=== PATIENT | female | born 1990 | race Caucasian/White ===

== ENCOUNTER → 2016-05-07 | Outpatient (CLI) | payer OTHER ==
--- NOTE | 2016-05-07 17:08 | DI ---
History: Antepartum screening study. Procedure: Transabdominal imaging using a 4 MHz transducer. Prior study dated 02/13/16 available. Findings: There is a single living intrauterine in vertex presentation; adequate amniotic f luid identified. Placenta is posteriorly oriented without previa or abruption. Face shows no evidence of cleft palate. Cervical length 6.5 cm. heart rate is 152 beats per minute. Four-chamber views of the heart are slightly suboptimal due to lie. No gross abnormalities are identified. No intracranial abnormalities are seen. There i s no evidence of hydrocephalus. Bony calvarium is normal. No nuchal thickening identified. Dorsal spi ne intact. Liver unremarkable. Three-vessel cord with normal insertion present. No ascites seen. Bladder n ormal. Extremities unremarkable as depicted. age parameters including BPD, HC, AC, FL are in close agreement between 21 weeks 6 days and 22 weeks 4 days. Aggregate is 22 weeks 2 days. By dates, 21 weeks 3 days is recorded. Estimated weight is 479 g. Impression: Single living intrauterine in the 81st percentile regarding weight and dates. O verall cardiac appearance is unremarkable to the extent visualized. A repeat ultrasound may be consid ered in about 4 weeks. At that point, position most likely will have changed. Estimated gestational age is 22 weeks 2 days. EDC 09/14/16
== END ==
LOC: US 14:05
PROVIDERS: ATTEND Family Medicine
DX: Z36 Encounter for antenatal screening of mother (principal); Z3A.21 21 weeks gestation of pregnancy
CPT/HCPCS: 76805

== ENCOUNTER → 2016-06-04 | Outpatient (CLI) | payer OTHER ==
--- NOTE | 2016-06-04 16:28 | DI ---
US OB , LIMITED,06/04/2016 2:22 PM: Clinical History: Additional heart views. Previous Exam: May 07, 2016 Findings: Multiple views of the heart are obtained demonstrating a normal four-chamber heart. The left and righ t ventricular outflow tracts are also normal. Detected Doppler heart tones measure 152 beats per minute. Visualized portions of the aorta are unremarkable. Impression: Normal four-chamber heart. This completes the anatomic survey.
== END ==
LOC: US 14:19
PROVIDERS: ATTEND Family Medicine
DX: Z36 Encounter for antenatal screening of mother (principal); Z3A.25 25 weeks gestation of pregnancy
CPT/HCPCS: 76815

== ENCOUNTER → 2016-06-28 | Outpatient (CLI) | payer OTHER ==
[2016-06-28 09:48] LABS: HEMATOCRIT 38.3 % (37.0-47.0); HEMOGLOBIN 13.1 g/dL (12.0-16.0); MEAN CORPUSCULAR HEMOGLOBIN 31.4 PG (27-31); MEAN CORPUSCULAR HGB CONC 34.2 g/dL (33-37); MEAN PLATELET VOLUME 9.6 FL (7.4-12.2); RDW COEFFICIENT OF VARIATION 14.2 % (11.5-14.5); RED BLOOD COUNT 4.17 10^6/uL (4.20-5.40); WHITE BLOOD COUNT 11.45 10^3/uL (4.8-10.8)
== END ==
LOC: LAB 08:27
PROVIDERS: ATTEND Family Medicine
DX: Z36 Encounter for antenatal screening of mother (principal); Z3A.28 28 weeks gestation of pregnancy
CPT/HCPCS: 36415; 82950; 84443; 85027

== ENCOUNTER → 2016-08-19 | Outpatient (CLI) | payer OTHER | LOC: MOB LAB 15:05 | PROVIDERS: ATTEND Family Medicine | DX: Z36 Encounter for antenatal screening of mother (principal); Z3A.36 36 weeks gestation of pregnancy | CPT/HCPCS: 87150 ==

== ENCOUNTER 2016-09-10 22:04 | Inpatient (IN) | payer OTHER ==
[2016-09-11] MEDS: Lactated Ringers 1,000 ML PRIMARY IV ONE ×2 (00:05→00:25)
[2016-09-11] MEDS ORDERED: NORMAL SALINE 10 ML SYRINGE FLUSH IVP PRN ×3 (00:12→02:56)
[2016-09-11] MEDS ORDERED: LIDOCAINE W/ SODIUM BICARB 0.5 ML SYR SUBD PRN (00:29)
[2016-09-11] MEDS ORDERED: CITRIC ACID/SODIUM CITRATE 30 ML CUP PO ONE (00:29)
[2016-09-11] MEDS ORDERED: CefOXitin Inj 2 GM in Sodium Chloride 0.9% 100 ML IV ONE (00:29)
[2016-09-11] MEDS ORDERED: Metoclopramide Inj 10 MG/2 ML VIAL IV ONE (00:29)
[2016-09-11] MEDS ORDERED: Lactated Ringers 1,000 ML PRIMARY IV ONE ×3 (00:29→02:11)
[2016-09-11] MEDS ORDERED: Famotidine Inj 20 MG in Normal Saline Flush 10 ML IVP ONE (00:29)
[2016-09-11] MEDS ORDERED: Lactated Ringers 1,000 ML PRIMARY IV SCH (00:30)
[2016-09-11] MEDS ORDERED: Oxytocin 20 Units + LR 1,000 ML IV SCH ×2 (00:30→03:45)
[2016-09-11 00:34] LABS: HEMATOCRIT 37.7 % (37.0-47.0); HEMOGLOBIN 13.1 g/dL (12.0-16.0); MEAN CORPUSCULAR HEMOGLOBIN 32.1 PG (27-31); MEAN CORPUSCULAR HGB CONC 34.7 g/dL (33-37); MEAN CORPUSCULAR VOLUME 92.4 FL (81-99); MEAN PLATELET VOLUME 10.3 FL (7.4-12.2); RED BLOOD COUNT 4.08 10^6/uL (4.20-5.40)
[2016-09-11] MEDS ORDERED: ePHEDrine Inj 50 MG/ML AMP ONE (00:59)
[2016-09-11] MEDS ORDERED: PHENYLEPHRINE 10,000 MCG/1 ML VIAL ONE (01:23)
[2016-09-11] MEDS ORDERED: Sodium Chloride 0.9% vial 10 ML ONE (01:23)
[2016-09-11] MEDS ORDERED: Oxytocin 20 Units + LR 1,000 ML IV ONE (01:28)
[2016-09-11] MEDS ORDERED: ONDANSETRON 4 MG/2 ML VIAL ONE (01:42)
[2016-09-11] MEDS ORDERED: ONDANSETRON 4 MG/2 ML VIAL IVP PRN ×2 (02:56→03:45)
[2016-09-11] MEDS ORDERED: HYDROmorphone 2 MG/1 ML IVP PRN (02:56)
[2016-09-11] MEDS ORDERED: fentaNYL Inj 100 MCG/2 ML VIAL IVP PRN (02:56)
--- NOTE | 2016-09-11 03:04 | OB.OP.NOTE ---
Operative Report Surgeon: Alex Bang MD Engraver [employer]: Dinesh Ortega MD Anesthesia Type: Regional Anesthesia Provider: Paramjit JoinerffCHRIS Surgery Date: 09/11/16 Preoperative Diagnosis: Previous section. Labor Postoperative Diagnosis: same, delivered Procedure: Repeat section Complications: none Estimated Blood Loss (mL): 900 Urine Output (mL): 400 Fluids: 2000 cc LR Indications: Pt has a history of 2 previous sections and is not a candidate for a trial of labor for vaginal after section. Findings: male infant in cephalic presentation; possibly very lightly meconium-stained amniotic fluid. Very thin lower uterine segment. Description of Procedure: The patient was taken to the operating room where spinal anesthesia was found to be adequate. She was then prepared and draped in the normal sterile fashion in the dorsal supine position with a leftward tilt. A Pfannenstiel skin incision was then made with the scalpel and carried through to the underlying layer of fascia with Bovie. The fascia was incised in the midline and the incision extended laterally with the Bovie. The superior aspect of the fascial incision was then grasped with Elda clamps, elevated and the underlying rectus muscles dissected off bluntly. Attention was then turned to the inferior aspect of this incision which, in a similar fashion, was grasped with Elda clamps and the rectus muscles dissected off both bluntly and with the Bovie. The rectus muscle was then in the midline, and the peritoneum identified, tented up, and entered in a blunt fashion. The peritoneal incision was then extended superiorly and inferiorly with good visualization of the bladder. The Rohit retractor was then inserted and the vesicouterine peritoneum was identified. A bladder flap was made with pickups and Metzenbaum scissors. The lower uterine segment was incised in a transverse fashion with the scalpel. The uterine incision was then extended laterally in a blunt fashion. The 's head was delivered atraumatically. The nose and mouth were suctioned with the bulb suction and the cord clamped and cut. The infant was handed off to the awaiting nurse. Cord gases and cord blood were sent for analysis. The placenta was then removed manually; the uterus exteriorized, and cleared of all clots and debris. There was brisk bleeding noted from the left side of the uterine incision. This was closed in the normal fashion with [address] Ortega. The remainder of the uterine incision was repaired with 0 Vicryl in a running, locked fashion. A second layer of the same suture was imbricated to obtain excellent hemostasis. There was brisk bleeding noted from several of the suture sites, and these were made hemostatic with figure of 8 sutures of 3-0 vicryl. The peritoneal cavity was then copiously irrigated with warm saline. The uterus was returned to the abdomen. The paracolic gutters were copiously irrigated with warm saline and a second look at the uterus incision continued to reveal excellent hemostasis. The peritoneum was closed with 3-0 Vicryl. The fascia was reapproximated with 0 PDS in a running fashion. The subcutaneous space was irrigated with copiously with warm saline and then closed first with 3-0 Vicryl rapide and then more superficially with Insorb absorbable sutures. The skin was reapproximated with Steri-Strips and a Silverlon dressing applied. Fundal massage was completed. The patient tolerated the procedure well. Sponge, lap, and needle counts were correct x2. Mefoxin was given preoperatively less than one hour prior to incision time. The patient was taken to the recovery room in stable condition.
[2016-09-11] MEDS ORDERED: Carboprost Inj 250 MCG/ML AMP IM PRN (03:45)
[2016-09-11] MEDS ORDERED: Famotidine Inj 20 MG in Normal Saline Flush 10 ML IVP PRN (03:45)
[2016-09-11] MEDS ORDERED: DIPH,PERTUSS,TET(ADACEL) VAC/PF 0.5 ML (Tdap) IM SCH (03:45)
[2016-09-11] MEDS ORDERED: CALCIUM CARBONATE 500 MG (TUMS) CHEWABLE TABLET PO PRN (03:45)
[2016-09-11] MEDS ORDERED: HYDROmorphone 2 MG/1 ML IV PRN (03:45)
[2016-09-11] MEDS ORDERED: diphenhydrAMINE 50 MG/1 ML VIAL IV PRN (03:45)
[2016-09-11] MEDS ORDERED: MISOPROSTOL 200 MCG TABLET RECTAL ONE (03:45)
[2016-09-11] MEDS ORDERED: METHYLERGONOVINE MALEATE 0.2 MG/1 ML VIAL IM PRN (03:45)
[2016-09-11] MEDS ORDERED: LANOLIN HPA 40 GM TUBE TOPICAL PRN (03:45)
[2016-09-11] MEDS ORDERED: Methylergonovine Tab 0.2 MG TAB PO PRN (03:45)
[2016-09-11] MEDS ORDERED: diphenhydrAMINE 25 MG CAPSULE PO PRN (03:45)
[2016-09-11] MEDS ORDERED: Nalbuphine Inj 20 MG/ML Ampule IVP PRN (03:45)
[2016-09-11] MEDS ORDERED: Naloxone Inj 0.01 MG, Sodium Chloride 0.9% vial 1 ML IVP PRN ×2 (03:45)
[2016-09-11] MEDS ORDERED: OXYTOCIN 10 UNIT/1 ML IM ONE (03:45)
[2016-09-11] MEDS: oxyCODONE-ACETAMINOPHEN 5-325 TAB PO PRN ×5 (04:03→21:45)
[2016-09-11] MEDS: KETOROLAC 30 MG/1 ML VIAL IVP PRN ×3 (04:04→16:18)
[2016-09-11] MEDS: D5-LR 1,000 ML PRIMARY IV SCH ×2 (07:27→13:14)
[2016-09-11] MEDS ORDERED: KETOROLAC 15 MG/1 ML VIAL IVP PRN (16:19)
[2016-09-11] MEDS: KETOROLAC 15 MG/1 ML VIAL IVP PRN (22:35)
[2016-09-11] MEDS: NORMAL SALINE 10 ML SYRINGE FLUSH IVP PRN (22:35)
[2016-09-12] MEDS: oxyCODONE-ACETAMINOPHEN 5-325 TAB PO PRN ×6 (01:49→20:57)
[2016-09-12] MEDS: KETOROLAC 15 MG/1 ML VIAL IVP PRN (04:53)
[2016-09-12] MEDS: NORMAL SALINE 10 ML SYRINGE FLUSH IVP PRN (04:54)
[2016-09-12 05:27] LABS: HEMATOCRIT 30.2 % (37.0-47.0); HEMOGLOBIN 10.3 g/dL (12.0-16.0); MEAN CORPUSCULAR HEMOGLOBIN 32.3 PG (27-31); MEAN CORPUSCULAR HGB CONC 34.1 g/dL (33-37); MEAN CORPUSCULAR VOLUME 94.7 FL (81-99); MEAN PLATELET VOLUME 9.9 FL (7.4-12.2); RED BLOOD COUNT 3.19 10^6/uL (4.20-5.40)
--- NOTE | 2016-09-12 09:15 | OB.PROGRES ---
Subjective Post Op Day: 1 Pain Management: PO [place] Catheter: No Flatus: Yes Diet: Regular Feeding Method: Exculsively Ambulating: Yes Concerns / Additional Information: C/o dizziness this morning with any type of movement. Did take a percocet this morning on an empty stomach. Feels better after she ate some breakfast. Objective - General General Appearance: POSITIVE: No Acute Distress, Cooperative - Cardiovacular Cardiovascular Exam: POSITIVE: RRR, No Murmur Edema: +1 Pedal Edema Extremities: Negative Vik's - Bilaterally - Respiratory Respiratory Exam: POSITIVE: Clear to Auscultation - Bilaterally, Breathing Non Labored - Abdomen Bowel Sounds: Present Abdominal Wound Assessment: Silverlone Dressing Assesstment / Plan (1) delivery delivered Current Visit: Yes Status: Acute Assessment / Plan: -routine cares. -rh positive. -rubella immune. -d/c home in 1-2 days.
[2016-09-12] MEDS: Prenatal Multivitamin Tab 1 TAB TAB PO SCH (09:21)
[2016-09-12] MEDS: Senna/Docusate Tab 1 TAB TAB PO SCH ×2 (09:21→20:58)
[2016-09-12] MEDS: IBUPROFEN 800 MG TABLET PO PRN ×2 (11:33→17:28)
[2016-09-13] MEDS: IBUPROFEN 800 MG TABLET PO PRN (00:58)
[2016-09-13] MEDS: oxyCODONE-ACETAMINOPHEN 5-325 TAB PO PRN (07:39)
[2016-09-13] MEDS: Prenatal Multivitamin Tab 1 TAB TAB PO SCH (08:28)
[2016-09-13] MEDS: Senna/Docusate Tab 1 TAB TAB PO SCH (08:28)
--- NOTE | 2016-09-13 08:33 | OB.PROGRES ---
Subjective Post Op Day: 2 Pain Management: PO [place] Catheter: No Flatus: Yes Diet: Regular Feeding Method: Exculsively Ambulating: Yes Objective - General General Appearance: POSITIVE: No Acute Distress, Cooperative - Cardiovacular Cardiovascular Exam: POSITIVE: RRR, No Murmur Edema: +1 Pedal Edema Extremities: Negative Vik's - Bilaterally - Respiratory Respiratory Exam: POSITIVE: Clear to Auscultation - Bilaterally, Breathing Non Labored Assesstment / Plan (1) delivery delivered Status: Acute Assessment / Plan: -routine cares. -breast feeding going well. -rh positive. -rubella immune. -d/c home later this morning.
[2016-09-13 08:48] VITALS: RESP 16; TEMP 98
--- NOTE | 2016-09-22 22:07 | DCSUMMARY ---
Hospitalization Summary Admit Date: 09/11/16 Discharge Date: 09/13/16 Primary Diagnosis:: Previous section x 2 Primary Surgery and Date: Repeat section, September 11 Delivery Type: Hospital Course: Pt had a normal course, for details of her repeat section, please see the operative report dictated elsewhere in the chart. / Postop Complications: Pt had a normal post-operative course. On the day of discharge, baby was nursing well, pt was independent in her activities of daily living, and her pain was well-controlled on oral medications. Gracey Complications: none Exam - Vitals Vital Signs: Vital Signs Temperature 98.0 F Temperature Source Oral Pulse Rate [Apical] 95 Pulse Rate [Pulse Oximeter] 91 Pulse Rate 91 Respiratory Rate 16 Blood Pressure [Left Arm] 106/63 Blood Pressure [Right Arm] 104/49 Blood Pressure 111/68 Pulse Ox 97 Oxygen Delivery Method Room Air Height 5 ft 6 in Weight 201 lb 12.8 oz - General General Appearance: POSITIVE: No Acute Distress, Cooperative - Head Head Exam: POSITIVE: Normal Inspection - ENT ENT Exam: POSITIVE: Normal Exam - Neck Neck Exam: POSITIVE: Normal Inspection - Respiratory Respiratory Exam: POSITIVE: Clear to Auscultation - Bilaterally, Breathing Non Labored - Cardiovascular Cardiovascular Exam: POSITIVE: RRR, No Murmur - GI/Abdominal GI/Abdominal Exam: POSITIVE: Normal Bowel Sounds, Non Tender, Non Distended, Soft - Extremities Extremities Exam: POSITIVE: Normal Inspection, Normal Capillary Refill - Neurological Neurological Exam: POSITIVE: Alert, Oriented x 3 - Psychiatric Psychiatric Exam: POSITIVE: Normal Affect, Normal Mood - Integumentary Integumentary Exam: POSITIVE: Normal Color, Warm, Dry Patient Problems - Patient Problem List (1) Status post repeat low transverse section Status: AcuteSupport Text: -routine cares. -breast feeding well. -rh positive. -rubella immune. -d/c home today, f/u next week.
== END 2016-09-13 10:18 | disposition home or self-care (01) | DRG 766 ==
LOC: OBOP 22:04 → OBIP 09-11 00:30 → OBOR 09-11 00:30 → OBIP 09-11 03:04
PROVIDERS: ADMIT Family Medicine; ATTEND Family Medicine
PROC: 10D00Z1 Extraction of Products of Conception, Low, Open Approach (ICD-10-PCS; principal; 2016-09-11 01:30)
DX: O34.211 Maternal care for low transverse scar from previous cesarean delivery (principal); N85.8 Other specified noninflammatory disorders of uterus; Z3A.39 39 weeks gestation of pregnancy; Z37.0 Single live birth
CPT/HCPCS: 36415; 59025; 81003; 85027; 86850; 86900; 86901; 94150; 94761; 99211; A4216; J1885; J2370; J2405; J2765; J7050; J7120

== ENCOUNTER 2016-09-17 09:54 | Emergency (ER) | payer OTHER ==
[2016-09-17] MEDS ORDERED: Sodium Chloride 0.9% 1,000 ML PRIMARY IV ONE (10:08)
[2016-09-17] MEDS ORDERED: KETOROLAC 15 MG/1 ML VIAL IVP ONE (10:08)
[2016-09-17] MEDS ORDERED: ONDANSETRON 4 MG/2 ML VIAL IVP ONE (10:08)
--- NOTE | 2016-09-17 10:15 | PDOC ---
Skin Rash/Insect/Abscess HPI - General Chief Complaint: Laceration / Wound Stated Complaint: Infected Incision Date Seen by Provider: 09/17/16 Time Seen by Provider: 10:10 Source: POSITIVE: Patient Exam Limitations: POSITIVE: No limitations Nurse's Notes Reviewed & Considered: Yes - History of Present Illness Initial Comments: Patient comes in today with a chief complaint of incisional abscess. Patient underwent a a week ago and over the last 24 hours has developed swelling and erythema, left lateral Pfannenstiel incision region. She denies any fever chills sweats, nausea vomiting or diarrhea, headache, cough, shortness of breath, chest pain. Have you received a tetanus shot in the past 10 years?: No Body Location Affected: REPORTS: Abdomen Timing: REPORTS: Gradual Duration: <1 week Severity: Moderate Quality: REPORTS: "Pain", Throbbing Identified Causes: REPORTS: Possibly Suspected Etiology: REPORTS: Other (Incisional abscess) Similar Symptoms Previously: No Recent Care Received: REPORTS: Surgery () Any Prior Injuries Related to Current Complaint?: No - Patient Home Medications Home Medications: Home Medications RX: Ibuprofen [Motrin] 800 mg PO TID PRN #30 tab 09/13/16 RX: oxyCODONE/APAP 5/325 Tab [Percocet 5/325 Tab] 1 - 2 tab PO Q4H PRN #25 tab 09/13/16 - Patient Allergies Allergies/Adverse Reactions: Allergies Allergy/AdvReac Type Severity Reaction Status Date / Time tetracycline [Tetracycline] AdvReac Intermediate VOMITING Verified 09/17/16 10: 31 Past Medical History - heen HEENT History: Other (please comment) Additional HEENT History: Currently taking Augmentin for "Sinus Infection" states also has "little cough" non productive Cardiovascular History: Denies History Respiratory History: Denies History Gastrointestinal History: Denies History Genitourinary History: Denies History Endocrine History: Denies History Musculoskeletal History: Denies History Neurological History: Denies History Blood Disorders: Denies History Psychiatric History: Depression Additional Psychiatric History: post History of Sexually Transmitted Diseases: No Cancer History: Denies History History of MDRO: No History of Other Communicable Diseases: No Alcohol Use: None Substance Use Type: None Previous Surgical History: Yes Type / Date of Surgery: 2014, C-2015 Anesthesia Reactions: No Malignant Hyperthermia: No Significant Family History: No pertinent family hx ROS - Limitations ROS Limitations: No Limitations Constitution: REPORTS: Denies Symptoms Cardiovascular: REPORTS: Denies Cardiac Symptoms Respiratory: REPORTS: Denies Resp Symptoms Neurological: REPORTS: Denies Neuro Symptoms Gastrointestinal: REPORTS: Abdominal Pain, Other (Swelling and erythema of left lateral Pfannenstiel incision) Endocrine: REPORTS: Denies Symptoms Musculoskeletal: REPORTS: Denies MS Symptoms Genitourinary: REPORTS: Denies Symptoms Eyes: REPORTS: Denies Symptoms ENT: REPORTS: Denies Symptoms Skin: REPORTS: Denies Skin Symptoms Lympathic: REPORTS: Denies Lympathic Symptoms Immunologic: POSITIVE: Denies Symptoms Psychiatric: POSITIVE: Denies Psych Symptoms Skin Rash/Insect/Abscess Exam - Skin Skin: REPORTS: Warm, Dry, Abscess, Tender Indurated Area, Pointing, Fluctuant, Wtih Erythema Skin Location: REPORTS: Abdomen Skin Symptoms: REPORTS: Warmth, Tenderness, Swelling, Induration - Extremities Extremity: Non-Tender: (All Extremities), Normal ROM: (All Extremities), Normal Inspection: (All Extremities), Pelvis Stable: (All Extremities) - HEENT HEENT: POSITIVE: Head Inspection Nml, Eyes Inspection Nml, Ears Inspection Nml, Nose Inspection Nml, PERRL, EOMI - Neck Neck: REPORTS: Trachea Midline, No Swelling - Respiratory Respiratory: REPORTS: No Respiratory Distress, Breath Sounds Normal - Cardiovascular Cardiovascular: REPORTS: Regular Rate and Rhythm, Heart Sounds Normal - Abdomen Abdomen: Soft: (All Quadrants), Normal Bowel Sounds: (All Quadrants), Tenderness Noted: (RLQ), (LLQ) (fluctuance left lateral Pfannenstiel incision) - Neurological / Psychological Neurological: REPORTS: Affect Apporpriate, Oriented X3, Motor Normal, Sensation Normal Procedures - Laceration/Wound Repair Did patient have a laceration repair: No - Incision and Drainage Site: left lateral Pfannenstiel incision. Local Anesthesia Used - Indicate Amt Used in Comment: Lidocaine 1%: Yes Blade Size: 11 I & D Procedure: gauze wick placed I&D Treatment: Purulent Drainage, Small Amount, Probed to Brk Loculations, Packed w/ Gauze, Obtained Cultures, Gram Stains Obtained Procedure Note:: After obtaining informed verbal consent patient had her abscess infiltrated 1% lidocaine an 11 blade was used to open the abscess. Purulent material was expressed. Gram stains and cultures were obtained. The abscess was evacuated, and a 1 inch iodoform gauze wick was placed. An ABG pad was placed over the top of this. No tape was utilized, instead use the patient's undergarments told bandage in place. Patient tolerated this well, she receives IV antibiotics , prescription for oral's. Skin Rash/Abscess Progress - Results Reviewed by me Xrays/CTs/US Reviewed by me: Yes Discussed with Radiologist: Yes Labs Normal Except for:: Abnormal Lab Results: Entire Visit 09/17/16 Range/Units 10:05 WBC 12.16 H (4.8-10.8) 10^3/uL RBC 3.57 L (4.20-5.40) 10^6/uL Hgb 11.3 L (12.0-16.0) g/dL Hct 33.3 L (37.0-47.0) % MCH 31.7 H (27-31) PG Neut % (Auto) 82.3 H (50-80) % Lymph % (Auto) 9.4 L (10-50) % Vermilion # (Auto) 0.87 H (0.3-0.8) 10*3/UL Albumin 3.2 L (3.5-4.8) g/dL Albumin/Globulin Ratio 1.00 L (1.3-2.0) mg/g Lab Results Reviewed: Yes - Patient's Progress Pain Medication Addressed: POSITIVE: Yes Re-Examine Time:: 11:40 Status: POSITIVE: Improved MDM / ED Course: Patient was examined, an IV started, blood drawn and sent to the lab for studies , radiographic examination was obtained. Findings: CBC shows white count elevated to 13. CT scan per my interpretation shows subcutaneous abscess left lower quadrant in the region of a Pfannenstiel incision. No acute intra-abdominal abnormality is appreciated. Assessment: Wound infection, abscess I&D. Plan: IV antibiotics, dressing changes for her wound with wick placement into abscess, follow-up with OB gynecology. - Consult Counseled: POSITIVE: Patient, Family, RE: Lab Results, RE: Radiology Results, RE : DX, RE: Need for F/U Patient Care Time - Estimated PCT Patient Care Time (In Minutes): 45 Vital Signs - Recent Vital Signs Vital Signs: Vital Signs (Last 8 hours) Temp Pulse Resp BP Pulse Ox 09/17/16 09:55 96.6 F L 100 15 110/43 99 - VS Reviewed Vital Signs Reviewed: Yes Discharge Clinical Impression: Incisional abscess Discharge Disposition: Discharged to Home Condition: Stable Patient Instructions Given at Discharge: Abscess (ED)
[2016-09-17 10:17] LABS: BASOPHILS # (AUTO) 0.03 10*3/UL; BASOPHILS % (AUTO) 0.2 % (0-1); EOSINOPHILS # (AUTO) 0.09 10*3/UL; EOSINOPHILS % (AUTO) 0.7 % (0-8); HEMATOCRIT 33.3 % (37.0-47.0); HEMOGLOBIN 11.3 g/dL (12.0-16.0); LYMPHOCYTES # (AUTO) 1.14 10*3/uL; MEAN CORPUSCULAR HEMOGLOBIN 31.7 PG (27-31); MEAN CORPUSCULAR HGB CONC 33.9 g/dL (33-37); MEAN CORPUSCULAR VOLUME 93.3 FL (81-99); MONOCYTES # (AUTO) 0.87 10*3/UL (0.3-0.8); MONOCYTES % (AUTO) 7.2 % (5-15); NEUTROPHILS % (AUTO) 82.3 % (50-80); RED BLOOD COUNT 3.57 10^6/uL (4.20-5.40)
[2016-09-17 10:18] LABS: PLATELET MORPHOLOGY COMMENT NORMAL MORPHOLOGY (NORM); RBC MORPHOLOGY COMMENT NORMAL MORPHOLOGY (NORM); WBC MORPHOLOGY COMMENT NORMAL MORPHOLOGY (NORM)
[2016-09-17 10:28] LABS: BLOOD UREA NITROGEN 10 mg/dL (7-22); BUN/CREATININE RATIO 14.28 (6-20); CALCIUM 8.7 mg/dL (8.7-10.7); EST GLOMERULAR FILTRATION > 60 (>60 ml/min/1.73m(2)); SERUM ALBUMIN 3.2 g/dL (3.5-4.8)
[2016-09-17 10:52] VITALS: RESP 15; TEMP 96.6
[2016-09-17] MEDS ORDERED: Lidocaine Inj 1% 20 ML ONE (11:30)
[2016-09-17] MEDS ORDERED: ceFAZolin Inj 3 GM in Sodium Chloride 0.9% 100 ML IV ONE (11:36)
[2016-09-17] MEDS ORDERED: Lidocaine 1% 10 MG/ML - 20 ML VIAL SUBCUT ONE (11:38)
--- NOTE | 2016-09-17 14:36 | DI ---
CT ABDOMEN SCAN WITH IV CONTRAST, 09/17/2016 10:08 AM : Clinical History: Incisional abscess. Abdominal pain. The patient had a approximately one w [place] earlier. Previous Exam: None at this facility. Scans are performed from the lower lung bases through the liver and kidneys with IV contrast. 75 ml o f Isovue 300 was injected IV. No oral or rectal contrast was ordered. The lung bases are clear. The liver is normal. The gallbladder is grossly normal. Both adrenal glands and the pancreas are normal. There is mild to moderate splenomegaly without evidence of varices. Bot h kidneys are normal in size, shape, position and contour. There is no hydronephrosis or hydroureter. No renal or ureteral calculi are present. There are no abnormal retrocrural or periaortic nodes. No ascites is present. READING: Mild to moderate splenomegaly. Scans of the upper abdomen are otherwise normal. CT PELVIS SCAN WITH IV CONTRAST, 09/17/2016 10:08 AM: Clinical History: See above. Previous Exam: None at this facility. Scans are performed from just superior to the umbilicus to the symphysis pubis with IV contrast. This is the same bolus of contrast used for the CT scans of the abdomen. Scans through the lower abdomen and pelvis show no masses or abnormal fluid collections. There is no intra-abdominal adenopathy. The appendix is not visualized with certainty but there is no inflammator y mass either in the cecal tip or in the right lower quadrant. The small bowel, terminal ileum, and i leocecal valve are normal. The colon is also normal. There is a small umbilical hernia through which only mesenteric fat has herniated. The uterus is enlarged consistent with the history of recent deliv charlie. Neither ovary is identified with certainty. There is inflammatory/infiltrative change corresponding to the transverse incision related to the C-s ection. There is more soft tissue prominence laterally on the left side than on the right at the inci ramon site. The subcutaneous fat deep to the incision and extending laterally into the flank region sh ows inflammatory/infiltrative change. The left rectus muscle deep to the incision is approximately tw ice as thick as the right side and this may indicate there is a postoperative hematoma or seroma in t he right rectus muscle. In view of the inflammatory/infiltrative changes in the incision particularly on the left side, a rectus sheath abscess cannot entirely be excluded. READIN. There is thickening of the left rectus muscle bundle just deep to the incision. The inc ision itself is thickened and prominent on the left side compared to the right. Inflammatory/infiltra tive changes are evident in the subcutaneous fat surrounding the incision site and extending into bot h flank regions. An incisional abscess on the left side is suspected with diffuse cellulitis. The thi ckening of the rectus muscle on the left side either represents a postoperative hematoma/seroma, but an abscess of this muscle bundle cannot entirely be excluded because of its proximity to the suspecte d incisional abscess. 2. The uterus is enlarged but expected for the recent status. No intra-abdominal fluid co llection is noted.
== END 2016-09-17 12:38 | disposition home or self-care (01) ==
LOC: ER 09:54
DX: L76.82 Other postprocedural complications of skin and subcutaneous tissue (principal); O86.0 Infection of obstetric surgical wound
CPT/HCPCS: 10060; 74177; 80053; 83735; 85025; 87070; 87075; 87077; 87185; 87186; 87205; 96365; 96375; 99282; J0690; J1885; J2001; J2405; J7030; J7050

== ENCOUNTER 2019-02-15 05:57 | Inpatient (IN) ==
[~2019-02-15 05:57] MED LIST: CITRIC ACID/SODIUM CITRATE 30 ML CUP PO ONE; CefOXitin Inj 2 GM in Sodium Chloride 0.9% 100 ML IV ONE; FAMOTIDINE 20 MG/2 ML VIAL IVP ONE; LIDOCAINE HCL 2 % 10 ML JELLY URO-JECT TOPICAL PRN; LIDOCAINE W/ SODIUM BICARB 0.5 ML SYR SUBD PRN; Lactated Ringers 1,000 ML PRIMARY IV ONE; Lactated Ringers 2,000 ML PRIMARY IV ONE; Metoclopramide Inj 10 MG/2 ML VIAL IV ONE
[2019-02-15] MEDS ORDERED: Lactated Ringers 1,000 ML PRIMARY IV SCH (06:00)
[2019-02-15] MEDS ORDERED: Oxytocin 20 Units + LR 20 UNIT/1,000 ML BAG IV SCH ×2 (06:00→10:00)
[2019-02-15 06:47] LABS: Hemoglobin [HGB] 13.1 g/dL (12.0-16.0); MEAN CORPUSCULAR HGB CONC 34.5 g/dL (33-37); MEAN CORPUSCULAR VOLUME 90.9 FL (81-99); RED BLOOD COUNT 4.18 10^6/uL (4.20-5.40)
[2019-02-15 06:48] LABS: MEAN PLATELET VOLUME 9.8 FL (7.4-12.2)
[2019-02-15] MEDS ORDERED: fentaNYL Inj 100 MCG/2 ML VIAL ONE (07:15)
[2019-02-15] MEDS ORDERED: OXYTOCIN 10 UNIT/1 ML ONE (07:57)
[2019-02-15] MEDS ORDERED: KETOROLAC 30 MG/1 ML VIAL ONE (08:17)
[2019-02-15] MEDS ORDERED: ONDANSETRON 4 MG/2 ML VIAL ONE (08:24)
[2019-02-15] MEDS ORDERED: Prochlorperazine Edisylate Inj 10mg/2ml vial IVP PRN (09:03)
[2019-02-15] MEDS ORDERED: HYDROmorphone 2 MG/1 ML IVP PRN (09:03)
[2019-02-15] MEDS ORDERED: LIDOCAINE W/ SODIUM BICARB 0.5 ML SYR SUBD PRN (09:03)
[2019-02-15] MEDS ORDERED: diphenhydrAMINE 50 MG/1 ML VIAL IV PRN (09:54)
[2019-02-15] MEDS ORDERED: ONDANSETRON 4 MG/2 ML VIAL IVP PRN (09:54)
[2019-02-15] MEDS ORDERED: diphenhydrAMINE 25 MG CAPSULE PO PRN (09:54)
[2019-02-15] MEDS ORDERED: DIPH,PERTUSS,TET(ADACEL) VAC/PF 0.5 ML (Tdap) IM ONE (09:54)
[2019-02-15] MEDS ORDERED: BUTORPHANOL TARTRATE 2 MG/1 ML VIAL IVP PRN (09:54)
[2019-02-15] MEDS ORDERED: Nalbuphine Inj 20 MG/ML Ampule IVP PRN (09:54)
[2019-02-15] MEDS ORDERED: Naloxone Inj 0.01 MG, Sodium Chloride 0.9% vial 1 ML IVP PRN ×2 (09:54)
[2019-02-15] MEDS ORDERED: LANOLIN HPA 40 GM TUBE TOPICAL PRN (09:54)
[2019-02-15] MEDS ORDERED: HYDROmorphone 2 MG/1 ML IV PRN (09:54)
[2019-02-15] MEDS ORDERED: FAMOTIDINE 20 MG/2 ML VIAL IVP PRN (09:54)
[2019-02-15] MEDS ORDERED: CALCIUM CARBONATE 500 MG (TUMS) CHEWABLE TABLET PO PRN (09:54)
[2019-02-15] MEDS: oxyCODONE-ACETAMINOPHEN 5-325 TAB PO PRN ×3 (11:43→20:25)
[2019-02-15] MEDS: KETOROLAC 15 MG/1 ML VIAL IVP SCH ×2 (14:11→20:25)
[2019-02-15] MEDS: D5-LR 1,000 ML PRIMARY IV SCH (18:19)
[2019-02-16] MEDS: oxyCODONE-ACETAMINOPHEN 5-325 TAB PO PRN ×4 (01:19→17:50)
[2019-02-16] MEDS: KETOROLAC 15 MG/1 ML VIAL IVP SCH ×2 (03:09→08:32)
[2019-02-16 05:55] LABS: Hematocrit [HCT] 32.4 % (37.0-47.0); Hemoglobin [HGB] 11.1 g/dL (12.0-16.0); MEAN CORPUSCULAR HGB CONC 34.3 g/dL (33-37); MEAN PLATELET VOLUME 9.9 FL (7.4-12.2); RED BLOOD COUNT 3.52 10^6/uL (4.20-5.40)
[2019-02-16] MEDS: Sertraline Tab 50 MG TAB PO SCH (08:32)
[2019-02-16] MEDS: Senna/Docusate Tab 1 TAB TAB PO SCH ×2 (08:32→21:43)
[2019-02-16] MEDS: Prenatal Multivitamin Tab 1 TAB TAB PO SCH (08:32)
[2019-02-16] MEDS: IBUPROFEN 800 MG TABLET PO SCH ×2 (14:49→23:26)
[2019-02-16] MEDS ORDERED: IBUPROFEN 800 MG TABLET PO SCH (15:46)
[2019-02-17] MEDS: Sertraline Tab 50 MG TAB PO SCH (08:26)
[2019-02-17] MEDS: IBUPROFEN 800 MG TABLET PO SCH ×3 (08:26→22:48)
[2019-02-17] MEDS: Prenatal Multivitamin Tab 1 TAB TAB PO SCH (08:26)
[2019-02-17] MEDS: Senna/Docusate Tab 1 TAB TAB PO SCH ×2 (08:26→20:57)
[2019-02-18 05:34] VITALS: TEMP 98.6
[2019-02-18] MEDS: IBUPROFEN 800 MG TABLET PO SCH (07:15)
[2019-02-18 07:19] VITALS: BP 104/61; RESP 18; O2SAT 98
[2019-02-18] MEDS: Sertraline Tab 50 MG TAB PO SCH (08:55)
[2019-02-18] MEDS: Prenatal Multivitamin Tab 1 TAB TAB PO SCH (08:55)
[2019-02-18] MEDS: Senna/Docusate Tab 1 TAB TAB PO SCH (08:55)
== END 2019-02-18 12:00 | disposition home or self-care (01) | DRG 788 ==
LOC: OPS 05:57 → OBOR 06:06 → OBIP 10:10
PROVIDERS: ADMIT Family Medicine; ATTEND Family Medicine